=== PATIENT | male | born 1960 | race Caucasian/White ===

== ENCOUNTER → 2016-12-25 | Outpatient (CLI) | payer OTHER ==
--- NOTE | 2016-12-25 13:03 | NM ---
EXAMINATION TYPE: NM stress cardiolite complete DATE OF EXAM: 12/25/2016 10:21 AM COMPARISON: NONE HISTORY: 56-year-old male with chest pain TECHNIQUE: After the intravenous administration of 9.6 mCi Tc 99m Sestamibi - Rest images obtained 5 0 minutes post injection. The patient exercised using a ARTURO protocol and 1 minute prior to peak e xercise was injected with 25.6 mCi Tc 99m Sestamibi - Stress images obtained 7 minutes post injection . FINDINGS: Targeted heart rate was achieved during performance of the study. Review of stress and rest SPECT clarisa ges demonstrates no distinct perfusion abnormality. Gated analysis shows normal wall motion with an estimated left ventricular ejection fraction of 65 %. TID is calculated at 0.94, within normal limit s. Polar maps are normal. IMPRESSION: No scintigraphic evidence for reversible ischemia
--- NOTE | 2016-12-25 17:06 | ECHOS ---
DATE OF SERVICE: 12/25/2016 AGE: 56Y SEX: M HT: WT: lbs. Protocol Terrence: Others: Stage: Dur. of Exercise: 5:45 minutes *Heart Rate Blood Pressure *Rest: 87 Rest: 139/71 * *Max. Achieved: 150 Maximum BP: 203/77 85% PMHR: 139 100% PMHR: 163 *METS: 6.3 INDICATIONS: Chest pain. MEDICATIONS: See list. Patient was exercised for a total period of 6 minutes. A peak heart rate of 150 was achieved. Maximum blood pressure of 203/77 mm of mercury was noted. The patient did not complain of any chest pain during the test. Resting EKG shows normal sinus rhythm with normal OK interval and QRS duration and normal ST-T waves. No ST segment depression suggestive of ischemia is noted. The results of the nuclear study will follow. FINAL IMPRESSION: 1. This exercise EKG is not suggestive of ischemia. 2. Patient's exercise tolerance is below average. 3. Patient did not complain of any anginal pain during the test. 4. The results of the nuclear study will follow.
== END | disposition home or self-care (01) ==
LOC: RADNMMAIN 07:58
PROVIDERS: ATTEND Family Medicine
DX: R07.9 Chest pain, unspecified (principal)
CPT/HCPCS: 93017; 78452; A9500

== ENCOUNTER → 2018-04-03 | Outpatient (CLI) | payer OTHER ==
--- NOTE | 2018-04-03 15:09 | CTL ---
EXAMINATION TYPE: CT Low Dose Lung DATE OF EXAM ORDERED: 04/03/2018 HISTORY: Long-term tobacco use . Lung cancer screening CT DLP: 128.[address] CTDI: 3.60 mGy Automated exposure control for dose reduction was used. SCREENING VISIT: Initial study COMPARISON: Chest x-ray September 08, 2016 TECHNIQUE: Low dose computed tomography scan was performed through the chest at 1 mm thick sections and reconstructed images in the coronal plane at [address] DIAGNOSTIC QUALITY: Satisfactory FINDINGS: LUNG NODULES: Present, detailed below: Right lung a nodule with a size of 4 x 3 mm axial image 72. Right middle lobe a 5 x 3 mm nodule axial image 161 subpleural level. Right midlung hilar level a 6 x 3 mm nodule axial image 107 abutting the right mainstem bronchus at t he bifurcation. Left mid to lower lung anteriorly axial image 134 a 5 x 2 mm nodule. LUNGS: COPD: Severity: Mild Fibrosis: Severity: None Lymph nodes: No greater than 1 cm Other findings: No suspicious incidental findings BILATERAL PLEURAL SPACE: Effusion: None Calcification: None Thickening: None Pneumothorax: None HEART: Heart Size: Normal Coronary calcification: Moderate LAD and left circumflex Pericardial effusion: None OTHER FINDINGS: Upper abdomen: Liver is diffusely low dense relative to spleen consistent with mild fatty infiltratio n Bony thorax: Mild to moderate multilevel anterior and lateral spurring most prominent in the lower th oracic spine. Supraclavicular region: None Other: Ascending aorta measures up to 3.6 cm in diameter. Tiny degree of bilateral gynecomastia is fe lt present. IMPRESSION: Scattered small nodules as detailed above FOLLOW UP CT CHEST RECOMMENDATION: Six-month follow-up low-dose lung screening CT. CT LUNG RAD: Lung-Rad 3 Probably Benign
== END | disposition home or self-care (01) ==
LOC: RADCTMAIN 13:17
PROVIDERS: ATTEND Family Medicine
DX: R91.8 Other nonspecific abnormal finding of lung field (principal); Z87.891 Personal history of nicotine dependence

== ENCOUNTER → 2018-10-04 | Outpatient (CLI) | payer OTHER ==
--- NOTE | 2018-10-04 13:53 | CTL ---
EXAMINATION TYPE: CT Low Dose Lung DATE OF EXAM ORDERED: 10/04/2018 COMPARISON: 04/03/2018 HISTORY: . Low Dose CT Lung Screening CT DLP: [address] CTDI: 2.5 mGy IV CONTRAST USED: None. SCREENING VISIT: First visit COMPARISON: None. TECHNIQUE: Low dose computed tomography scan was performed through the chest at 1 millimeter thick se ctions and reconstructed images in the coronal plane at [address] DIAGNOSTIC QUALITY: Satisfactory FINDINGS: LUNG NODULES: Right lung a nodule with a size of 4 x 3 mm axial image 64. Right middle lobe a 5 x 3 mm nodule axial image 146 subpleural level. Right midlung hilar level a 6 x 3 mm nodule axial image 95 abutting the right mainstem bronchus at the bifurcation. Left mid to lower lung anteriorly axial image 134 a 6 x 2 mm nodule. No new nodules identified. LUNGS: COPD: Severity: Mild Fibrosis: Severity:None Lymph nodes: None Other findings: None RIGHT PLEURAL SPACE: Effusion: None Calcification: None Thickening: None Pneumothorax: None LEFT PLEURAL SPACE: Effusion: None Calcification: None Thickening: None Pneumothorax: None HEART: Heart Size: Mildly enlarged Coronary calcification: Moderate Pericardial effusion: None OTHER FINDINGS: Upper abdomen: Fatty liver. Bony thorax: Degenerative changes Supraclavicular region: No significant abnormalityOther: No significant abnormalityI IMPRESSION: Stable scattered small nodules as noted. FOLLOW UP CT CHEST RECOMMENDATION: Six-month follow-up low-dose lung screening CT. LUNG RAD CATEGORY Lung-Rad 3 Probably Benign
== END | disposition home or self-care (01) ==
LOC: RADCTMAIN 12:57
PROVIDERS: ATTEND Family Medicine
DX: Z12.2 Encounter for screening for malignant neoplasm of respiratory organs (principal); R91.8 Other nonspecific abnormal finding of lung field; Z87.891 Personal history of nicotine dependence

== ENCOUNTER 2019-05-13 16:06 | Emergency (ER) | payer OTHER ==
[2019-05-13] MEDS ORDERED: MECLIZINE 12.5 MG TAB PO STA (18:14)
[2019-05-13] MEDS ORDERED: METOCLOPRAMIDE 5 MG/ML 2 ML VIAL IVP STA (18:14)
[2019-05-13] MEDS ORDERED: diphenhydrAMINE 50 MG/ML 1 ML VIAL IVP STA (18:14)
[2019-05-13] MEDS ORDERED: methylPREDNISolone SOD SUCCI 125 MG/2 ML VIAL IV STA (18:14)
[2019-05-13] MEDS ORDERED: SODIUM CHLORIDE 0.9% 1,000 ML IV ONE (18:15)
--- NOTE | 2019-05-13 18:19 | ED ---
Dizziness HPI - General Chief Complaint: Dizziness Stated Complaint: vertigo, scratchy throat Time Seen by Provider: 05/13/19 18:01 Source: patient, RN notes reviewed, old records reviewed Mode of arrival: wheelchair Limitations: no limitations - History of Present Illness Initial Comments: This Patient is a 59-year-old male who presents by department today for evaluation with chief complaint of vertigo like dizziness for the past 3 days. Patient reports he went to [facility]. That time he was placed on gentamicin drops and oral meclizine. He's been taking his medication as prescribed and states that he is to continue to have left ear pain and continued until dizzy. Patient states that he has had a scratchy throat, low-grade temperatures. He denies any neck pain, headache or shortness of breath or chest pain. Patient states that he had a history of ear tubes and he was younger. Patient states that he's had no significant falls related to his dizziness calls to falling.Patient denies any recent fever, chills, shortness of breath, chest pain, back pain, abdominal pain, nausea vomiting, numbness or tingling, dysuria or hematuria, constipation or diarrhea, headaches or visual changes, or any other current symptoms - Related Data Home Medications Medication Instructions Recorded Confirmed Cyclobenzaprine [Flexeril] 10 mg PO TID PRN 04/25/14 05/13/19 Ergocalciferol [Vitamin D2 50,000 unit PO WE 04/25/14 05/13/19 (DRISDOL)] Fenofibrate 160 mg PO DAILY 04/25/14 05/13/19 Loratadine [Claritin] 10 mg PO DAILY 04/25/14 05/13/19 Nefazodone HCl 200 mg PO BID 04/25/14 05/13/19 ALPRAZolam [Xanax] 1 mg PO QID 07/03/16 05/13/19 HYDROcodone/APAP 10-325MG [[place] 1 tab PO QID 07/03/16 05/13/19 10-325] Polyethylene Glycol 3350 [Miralax] 17 gm PO DAILY PRN 07/03/16 05/13/19 Beclomethasone Dipropionate [Qvar 1 puff INHALATION RT-BID PRN 07/28/18 05/13/19 80 mcg] Gentamicin 0.3% Ophth Soln 1 drops RIGHT EYE QID 05/13/19 05/13/19 [Garamycin 0.3% Ophth Soln] Previous Rx's Medication Instructions Recorded Aspirin 81 mg PO DAILY #30 chewable 07/29/18 Azithromycin 250 mg PO DAILY #6 tablet 05/13/19 Meclizine [Antivert] 25 mg PO TID #12 tab 05/13/19 methylPREDNISolone Dose Pack 4 mg PO DIRECTED #21 package 05/13/19 [Medrol Dose Pack] Allergies Allergy/AdvReac Type Severity Reaction Status Date / Time Penicillins Allergy Unknown Verified 05/13/19 18:51 varenicline [From Chantix] AdvReac Hallucinati Verified 05/13/19 18:51 ons Review of Systems ROS Statement: Those systems with pertinent positive or pertinent negative responses have been documented in the HPI. ROS Other: All systems not noted in ROS Statement are negative. Past Medical History Past Medical History: Hypertension Additional Past Medical History / Comment(s): Hypercholestremia, Back pain, Seasonal Allergies, anxiety and depression, chronic pain History of Any Multi-Drug Resistant Organisms: None Reported Past Surgical History: Ear Surgery Additional Past Surgical History / Comment(s): ear tubes Past Psychological History: Anxiety, Depression Smoking Status: Current every day smoker Past Alcohol Use History: None Reported Past Drug Use History: None Reported General Exam - General Exam Comments Initial Comments: This patient's a 59-year-old male. Alert and oriented 3. No significant distress. Limitations: no limitations Head exam: Present: atraumatic, normocephalic, normal inspection Eye exam: Present: normal appearance, PERRL, EOMI. Absent: scleral icterus, conjunctival injection, periorbital swelling ENT exam: Present: normal exam, other (Patient has erythematous left TM with evidence of effusion. Air-fluid levels noted. No tenderness of her mastoid. No meningeal signs.) Neck exam: Present: normal inspection. Absent: tenderness, meningismus, lymphadenopathy Respiratory exam: Present: normal lung sounds bilaterally. Absent: respiratory distress, wheezes, rales, rhonchi, stridor Cardiovascular Exam: Present: regular rate, normal rhythm, normal heart sounds. Absent: systolic murmur, diastolic murmur, rubs, gallop, clicks GI/Abdominal exam: Present: soft, normal bowel sounds. Absent: distended, tenderness, guarding, rebound, rigid Extremities exam: Present: normal inspection, full ROM, normal capillary refill. Absent: tenderness, pedal edema, joint swelling, calf tenderness Back exam: Present: normal inspection Neurological exam: Present: alert, oriented X3, CN II-XII intact Psychiatric exam: Present: normal affect, normal mood Skin exam: Present: warm, dry, intact, normal color. Absent: rash Course Vital Signs 05/13/19 16:30 Temperature 99.0 F Pulse Rate 105 H Respiratory 16 Rate Blood Pressure 147/92 O2 Sat by Pulse 97 Oximetry Medical Decision Making - Medical Decision Making This is a 5-year-old male presents today for evaluation for vertigo and left earache. Has been having symptoms since Sunday when he woke up. He is complaining of left ear pain. Was started on gentamicin drops and oral meclizine with no relief. This time he is evidence of significant effusion over his left TM. Patient will be given IV fluids, Reglan Benadryl and Solu-Medrol and Rocephin for concern for an ear infection. Patient was reevaluated this time states that since he is feeling much better states that he feels like to go home. Patient is advised to put him on oral antibiotics and steroid pack for concern for ear infection and associated vertigo. Patient states is like his vertigo in the past and is agreeable. Again he denies any headache chest pain or other symptoms. Patient will be discharged with close follow-up with PCP. Disposition Clinical Impression: Left middle ear infection, Vertigo Disposition: HOME SELF-CARE Condition: Good Instructions (If sedation given, give patient instructions): Dizziness (ED), Vertigo (ED) Additional Instructions: Patient advised to follow-up with her primary care physician. Recommended taking the medication as prescribed. Return to ED for any worsening symptoms. Patient should take the Antivert as prescribed and add the steroids and antibiotics as discussed. Prescriptions: Meclizine [Antivert] 25 mg PO TID #12 tab Azithromycin 250 mg PO DAILY #6 tablet methylPREDNISolone Dose Pack [Medrol Dose Pack] 4 mg PO DIRECTED #21 package Is patient prescribed a controlled substance at d/c from ED?: No Referrals: Papi Hazel III, MD [Primary Care Provider] - 1-2 days Time of Disposition: 19:34
[2019-05-13 20:13] VITALS: BP 143/90; PULSE 90; RESP 18; TEMP 98.9
== END 2019-05-13 20:13 | disposition home or self-care (01) ==
LOC: EC 16:06
DX: H66.92 Otitis media, unspecified, left ear (principal); R42 Dizziness and giddiness; E78.00 Pure hypercholesterolemia, unspecified; F41.9 Anxiety disorder, unspecified; F32.9 Major depressive disorder, single episode, unspecified; F17.200 Nicotine dependence, unspecified, uncomplicated; Z79.899 Other long term (current) drug therapy; Z88.0 Allergy status to penicillin; Z88.8 Allergy status to other drugs, medicaments and biological substances
CPT/HCPCS: 99284; 96374; 96375 ×2; 96361 ×2; J1200; J2765; J2930

== ENCOUNTER 2020-07-18 17:17 | Emergency (ER) | payer OTHER ==
[2020-07-18 17:30] VITALS: RESP 18; TEMP 98
--- NOTE | 2020-07-18 17:58 | ED ---
General Adult HPI - General Chief complaint: Recheck/Abnormal Lab/Rx Stated complaint: medication reaction Time Seen by Provider: 07/18/20 17:22 Source: patient Mode of arrival: ambulatory Limitations: no limitations - History of Present Illness Initial comments: Dictation was produced using [employer] dictation software. please excuse any grammatical, word or spelling errors. This patient was cared for during a federal and state declared state of emergency secondary to Covid 19 Chief Complaint: 60-year-old female presents with insomnia and anxiety History of Present Illness: Patient is a 60-year-old male. Patient states for the last week and a half he's been having symptoms of anxiety, tremors, loss of appetite or blurred vision. Patient states that at the time of the onset of symptoms he was starting a new antidepressant medication. Patient states that he used to be on Nefazodone. He is told that this medication was discontinued and he was started on a different antidepressant called Fetzima. He is given a pamphlet on the side effects of this medication. Feels like he is suffering from all of it. Patient denies any suicidal ideation, homicidal ideation, visual or auditory hallucinations. Feels anxious now. The ROS documented in this emergency department record has been reviewed and confirmed by me. Those systems with pertinent positive or negative responses have been documented in the HPI. All other systems are other negative and/or noncontributory. PHYSICAL EXAM: General Impression: Alert and oriented x3, not in acute distress HEENT: Normocephalic atraumatic, extra-ocular movements intact, pupils equal and reactive to light bilaterally, mucous membranes moist. Cardiovascular: Heart regular rate and rhythm Chest: Able to complete full sentences, no retractions, no tachypnea Abdomen: abdomen soft, non-tender, non-distended, no organomegaly Musculoskeletal: Pulses present and equal in all extremities, no peripheral edema Motor: no focal deficits noted Neurological: CN II-XII grossly intact, no focal motor or sensory deficits noted Skin: Intact with no visualized rashes Psych: Normal affect and mood ED course: 60-year-old male presents with possible side effects from new antidepressant medications. Signs upon arrival shows findings within acceptable limits. Patient is well-appearing at bedside. He does not appear anxious. Laboratory evaluation obtained showing no acute processes. Patient medically cleared for EPS evaluation. EPS evaluation recommended discharge and advised to discontinue the medication to follow-up with his PCP for different regimen. Patient agreeable with plan. Patient be discharged. - Related Data Home Medications Medication Instructions Recorded Confirmed Cyclobenzaprine [Flexeril] 10 mg PO TID PRN 04/25/14 05/13/19 Ergocalciferol [Vitamin D2 50,000 unit PO WE 04/25/14 05/13/19 (DRISDOL)] Fenofibrate 160 mg PO DAILY 04/25/14 05/13/19 Loratadine [Claritin] 10 mg PO DAILY 04/25/14 05/13/19 Nefazodone HCl 200 mg PO BID 04/25/14 05/13/19 ALPRAZolam [Xanax] 1 mg PO QID 07/03/16 05/13/19 HYDROcodone/APAP 10-325MG [[place] 1 tab PO QID 07/03/16 05/13/19 10-325] Polyethylene Glycol 3350 [Miralax] 17 gm PO DAILY PRN 07/03/16 05/13/19 Beclomethasone Dipropionate [Qvar 1 puff INHALATION RT-BID PRN 07/28/18 05/13/19 80 mcg] Gentamicin 0.3% Ophth Soln 1 drops RIGHT EYE QID 05/13/19 05/13/19 [Garamycin 0.3% Ophth Soln] Previous Rx's Medication Instructions Recorded Aspirin 81 mg PO DAILY #30 chewable 07/29/18 Azithromycin 250 mg PO DAILY #6 tablet 05/13/19 Meclizine [Antivert] 25 mg PO TID #12 tab 05/13/19 methylPREDNISolone Dose Pack 4 mg PO DIRECTED #21 package 05/13/19 [Medrol Dose Pack] Allergies Allergy/AdvReac Type Severity Reaction Status Date / Time Penicillins Allergy Unknown Verified 07/18/20 17:30 varenicline [From Chantix] AdvReac Hallucinati Verified 07/18/20 17:30 ons Review of Systems ROS Statement: Those systems with pertinent positive or pertinent negative responses have been documented in the HPI. ROS Other: All systems not noted in ROS Statement are negative. Past Medical History Past Medical History: Hypertension Additional Past Medical History / Comment(s): Hypercholestremia, Back pain, Seasonal Allergies, anxiety and depression, chronic pain History of Any Multi-Drug Resistant Organisms: None Reported Past Surgical History: Ear Surgery Additional Past Surgical History / Comment(s): ear tubes Past Psychological History: Anxiety, Depression Past Alcohol Use History: None Reported Past Drug Use History: None Reported General Exam Limitations: no limitations Course Vital Signs 07/18/20 17:23 Temperature 98 F Pulse Rate 100 Respiratory 18 Rate Blood Pressure 156/89 O2 Sat by Pulse 100 Oximetry Medical Decision Making - Lab Data Result diagrams: 07/18/20 18:13 07/18/20 18:13 Lab Results 07/18/20 07/18/20 Range/Units 18:13 18:13 WBC 10.9 H (3.8-10.6) k/uL RBC 5.80 (4.30-5.90) m/uL Hgb 17.0 (13.0-17.5) gm/dL Hct 52.9 (39.0-53.0) % MCV 91.2 (80.0-100.0) fL MCH 29.4 (25.0-35.0) pg MCHC 32.2 (31.0-37.0) g/dL RDW 13.2 (11.5-15.5) % Plt Count 223 (150-450) k/uL Neutrophils % 74 % Lymphocytes % 17 % Monocytes % 5 % Eosinophils % 1 % Basophils % 1 % Neutrophils # 8.1 H (1.3-7.7) k/uL Lymphocytes # 1.9 (1.0-4.8) k/uL Monocytes # 0.5 (0-1.0) k/uL Eosinophils # 0.1 (0-0.7) k/uL Basophils # 0.1 (0-0.2) k/uL Sodium 137 (137-145) mmol/L Potassium 5.2 H (3.5-5.1) mmol/L Chloride 105 (98-107) mmol/L Carbon Dioxide 23 (22-30) mmol/L Anion Gap 9 mmol/L BUN 13 (9-20) mg/dL Creatinine 0.87 (0.66-1.25) mg/dL Est GFR (CKD-EPI)AfAm >90 (>60 ml/min/1.73 sqM) Est GFR (CKD-EPI)NonAf >90 (>60 ml/min/1.73 sqM) Glucose 119 H (74-99) mg/dL Calcium 10.0 (8.4-10.2) mg/dL Magnesium 1.8 (1.6-2.3) mg/dL Disposition Clinical Impression: Drug side effects Disposition: HOME SELF-CARE Condition: Good Instructions (If sedation given, give patient instructions): Tremors (ED) Is patient prescribed a controlled substance at d/c from ED?: No Referrals: Papi Hazel III, MD [Primary Care Provider] - 1-2 days Time of Disposition: 20:23
[2020-07-18 18:19] LABS: Basophils # (A) 0.1 k/uL (0-0.2); Basophils % (A) 1 %; Eosinophils # (A) 0.1 k/uL (0-0.7); Eosinophils % (A) 1 %; HCT 52.9 % (39.0-53.0); Lymphocytes # (A) 1.9 k/uL (1.0-4.8); Lymphocytes % (A) 17 %; MCH 29.4 pg (25.0-35.0); MCHC 32.2 g/dL (31.0-37.0); MCV 91.2 fL (80.0-100.0); Mean Platelet Volume 10.2; Monocytes # (A) 0.5 k/uL (0-1.0); Monocytes % (A) 5 %; Neutrophils # (A) 8.1 k/uL (1.3-7.7); Neutrophils % (A) 74 %; Platelet Count 223 k/uL (150-450); RDW 13.2 % (11.5-15.5); WBC 10.9 k/uL (3.8-10.6)
[2020-07-18 18:30] LABS: African American GFR (CKD) >90 (>60 ml/min/1.73 sqM); Anion Gap 9 mmol/L; Blood Urea Nitrogen 13 mg/dL (9-20); Carbon Dioxide 23 mmol/L (22-30); Chloride 105 mmol/L (98-107); Glucose 119 mg/dL (74-99); Magnesium 1.8 mg/dL (1.6-2.3); Non-African American GFR(CKD) >90 (>60 ml/min/1.73 sqM); Sodium 137 mmol/L (137-145)
[2020-07-18 18:44] LABS: Potassium 5.2 mmol/L (3.5-5.1)
[2020-07-18 20:34] VITALS: BP 148/91; PULSE 95
== END 2020-07-18 20:34 | disposition home or self-care (01) ==
LOC: EC 17:17
DX: R25.1 Tremor, unspecified (principal); F41.9 Anxiety disorder, unspecified; T50.995A Adverse effect of other drugs, medicaments and biological substances, initial encounter; F32.9 Major depressive disorder, single episode, unspecified; E78.00 Pure hypercholesterolemia, unspecified; G89.29 Other chronic pain; M54.9 Dorsalgia, unspecified; I10 Essential (primary) hypertension; Z88.0 Allergy status to penicillin; Z88.8 Allergy status to other drugs, medicaments and biological substances; Z79.899 Other long term (current) drug therapy; Z79.891 Long term (current) use of opiate analgesic
CPT/HCPCS: 36415; 80048; 83735; 85025; 99284

== ENCOUNTER → 2022-01-21 | Outpatient (CLI) | payer OTHER ==
--- NOTE | 2022-01-21 19:07 | MR ---
EXAMINATION TYPE: MR brain and iac wo/w con DATE OF EXAM: 01/21/2022 COMPARISON: 07/29/2018 HISTORY: Migraine, tinnitus, bilateral CONTRAST: Standard multiplanar, multisequence MRI departmental protocol images were obtained without contrast a nd with 8 mL intravenous Gadavist gadolinium contrast. There is minimal cerebral atrophy. Diffusion images show no sign of an acute infarct. Ventricles have normal size. No mass effect or midline shift. No sign of intracranial hemorrhage. Corpus callosum is intact. FLAIR images show no significant white matter disease. There is 4 mm focus of increased sign al in the white matter left frontal lobe. The brainstem is intact. There is no evidence of posterior fossa mass. The internal auditory canals appear normal. The acoustical nerve and vestibular nerve appear normal. There is no evidence of cerebellopontine angle mass. No pathologic enhancement. There is normal enhan cement of the venous sinuses. IMPRESSION: Minimal atrophy. No acute intracranial abnormality. No focal posterior fossa abnormality. There is si nusitis without change.
== END | disposition home or self-care (01) ==
LOC: RADMRIMAIN 13:02
PROVIDERS: ATTEND Family Medicine
DX: J32.9 Chronic sinusitis, unspecified (principal); M62.50 Muscle wasting and atrophy, not elsewhere classified, unspecified site
CPT/HCPCS: 70553; A9585

== ENCOUNTER → 2022-09-25 | Outpatient (CLI) | payer OTHER ==
--- NOTE | 2022-09-25 15:19 | CTL ---
EXAMINATION TYPE: CT Low Dose Lung DATE OF EXAM: 09/25/2022 3:05 PM CLINICAL INDICATION:Male, 62 years old with history of Z87.891 personal history of tobacco use; perso nal history of tobacco use , history of tobacco use. COMPARISON: Subsequent exam most recent prior 10/04/2018 TECHNIQUE: Multiple axial non-contrast scans were obtained from approximately the lung apices through the upper abdomen. Coronal and sagittal reformatted images were obtained. Low dose technique was uti lized. CT DLP: 84.9 mGycm, Automated exposure control for dose reduction was used. CT Contrast: Contrast used: None Oral contrast used: None FINDINGS: ======== Lack of intravenous contrast and low dose technique limits the evaluation of the vascular and soft ti ssue structures. LUNGS: Mild emphysema changes are seen throughout the lungs. No focal consolidation, pneumothorax or pleural effusion. Left upper lung somewhat wedge-shaped area of increased interstitial prominence is not significantly changed. Nodules: RUL: Stable 5 mm nodule series 4 image 69. Stable 4 mm pulmonary nodule image 92 RML: Stable right middle lobe 3 mm pulmonary nodule image 134 RLL: None. YAS: None. LLL: None. AIRWAY: Patent and unremarkable. HEART: The heart is mildly enlarged for size. There is coronary artery atherosclerosis. MEDIASTINUM: No gross evidence of adenopathy. VASCULATURE: No aortic aneurysm. Atherosclerosis of the arterial vasculature. MUSCULOSKELETAL: No acute osseous abnormalities SOFT TISSUES/LYMPH NODES: Unremarkable. LOWER NECK: No significant findings. UPPER ABDOMEN: No significant findings. IMPRESSION: 1. Stable pulmonary nodules. 2. Mild emphysema changes. CT LUNG RAD AND CT CHEST RECOMMENDATION: Lung-Rad 2 Benign Appearance or Behavior: Continue annual sc reening with LDCT in 12 months. S Modifier (other clinically significant findings): None Recommend smoking cessation (if current smoker), or continuation of smoking cessation (if prior smoke r). Annual screening for lung cancer with low-dose computed tomography is recommended in adults ages 55 to 77 years who have a 30 pack-year smoking history and currently smoke or have quit within the pa st 15 years. Screening should be discontinued once a person has not smoked for 15 years or develops a health problem that substantially limits life expectancy or the ability or willingness to have [place] lung surgery. Lung rads 2021 [email or web address]
== END | disposition home or self-care (01) ==
LOC: RADCTMAIN 14:31
PROVIDERS: ATTEND Family Medicine
DX: Z12.2 Encounter for screening for malignant neoplasm of respiratory organs (principal); J43.9 Emphysema, unspecified; R91.8 Other nonspecific abnormal finding of lung field; Z87.891 Personal history of nicotine dependence
CPT/HCPCS: 71271

== ENCOUNTER 2022-12-19 10:59 | Day surgery (SDC) | payer OTHER ==
[2022-12-14 16:06] VITALS: BMI 36.1
[~2022-12-19 10:59] MED LIST: LACTATED RINGERS 1,000 ML IV SCH; LIDOCAINE 1% (10MG/ML) FOR IV START INTRADERMA PRN
[2022-12-19 11:59] VITALS: TEMP 97.5
--- NOTE | 2022-12-19 12:27 | P.PCN ---
Date of Procedure: 12/19/22 Procedure(s) Performed: BRIEF HISTORY: Patient is a 62-year-old pleasant male scheduled for an elective colonoscopy as a part of evaluation of prior history of colon polyps. Last coloscopy was 5 years ago. PROCEDURE PERFORMED: Colonoscopy with snare polypectomy. PREOPERATIVE DIAGNOSIS: History Of colon polyps. IV sedation per Anesthesia. PROCEDURE: After informed consent was obtained, the patient, was brought into the endoscopy unit. IV sedation was administered by Anesthesia under continuous monitoring. Digital rectal examination was normal. Initially the Olympus CF-160 flexible video colonoscope was then inserted in the rectum, gradually advanced into the cecum without any difficulty. Careful examination was performed as the scope was gradually being withdrawn. Ileocecal valve and the appendiceal orifice were visualized and appeared normal. Prep was excellent. Mucosa of the cecum, ascending colon, appeared normal. The transverse colon there was a 5 mm polyp that was removed by snare polypectomy. Rest of the transverse colon, descending colon, sigmoid colon, and rectum appeared normal. Retroflexion was performed in the rectum and grade 2 internal hemorrhoids were seen. The patient tolerated the procedure well. IMPRESSION: 5 mm transverse colon polyp status post polypectomy Grade 2 internal hemorrhoids RECOMMENDATIONS: Findings of this examination were discussed with the patient is well as his family. He was advised to follow with the biopsy results. Repeat colonoscopy in 5 years..
[2022-12-19] MEDS ORDERED: LIDOCAINE 2% INJ 20 MG/ML (2 ML VIAL) ONE (12:40)
[2022-12-19] MEDS ORDERED: PROPOFOL 10 MG/ML 20 ML VIAL IV ONE (12:40)
[2022-12-19 13:26] VITALS: BP 110/71; PULSE 85; RESP 18
== END 2022-12-19 13:48 | disposition home or self-care (01) ==
LOC: ORWHC2ENDO 10:59
PROVIDERS: ATTEND Internal Medicine Gastroenterology
DX: Z12.11 Encounter for screening for malignant neoplasm of colon (principal); K64.1 Second degree hemorrhoids; Z86.010 Personal history of colon polyps
CPT/HCPCS: 88305; 45385; J2704; J2001; 45380

== ENCOUNTER 2023-08-11 14:55 | Emergency (ER) | payer OTHER ==
[2023-08-11 16:15] VITALS: BP 143/78; PULSE 80; RESP 20; TEMP 98.6
[2023-08-11] MEDS ORDERED: ALPRAZolam 0.25 MG TAB PO STA (17:34)
--- NOTE | 2023-08-11 17:43 | ED ---
General Adult HPI - General Chief complaint: Anxiety Stated complaint: anxiety-withdrawls Time Seen by Provider: 08/11/23 17:23 Source: patient, RN notes reviewed, old records reviewed Mode of arrival: wheelchair Limitations: no limitations - History of Present Illness Initial comments: 63-year-old male who presents for evaluation of anxiety. Patient states he was on 1 mg Xanax 4 times daily for approximately 30 years. He was seen by new physician and was given a taper of Xanax over the past one month. He's uncertain of the exact details of this taper but no she's been out of medication for the past 4 days. He feels anxious and has some nausea. No seizure activity. He is requesting medication refill. - Related Data Home Medications Medication Instructions Recorded Confirmed Cyclobenzaprine [Flexeril] 10 mg PO TID PRN 04/25/14 12/19/22 Fenofibrate 160 mg PO DAILY 04/25/14 12/19/22 Loratadine [Claritin] 10 mg PO DAILY 04/25/14 12/19/22 ALPRAZolam [Xanax] 1 mg PO Q6HR PRN 07/03/16 12/19/22 HYDROcodone/APAP 10-325MG [[place] 1 tab PO Q6HR PRN 07/03/16 12/19/22 10-325] polyethylene glycoL 3350 [Miralax] 17 gm PO DAILY PRN 07/03/16 12/19/22 Beclomethasone Dipropionate [Qvar 1 puff INHALATION RT-BID 07/28/18 12/19/22 80 mcg] Aspirin 81 mg PO HS 12/14/22 12/19/22 Ergocalciferol [Vitamin D2 (1250 1,250 mcg PO WEEKLY 12/14/22 12/19/22 Mcg = 45976 Iu)] Fluticasone Propionate [Flovent 1 inhalation INHALATION DAILY 12/14/22 12/19/22 Diskus] Meclizine [Antivert] 25 mg PO TID PRN 12/14/22 12/19/22 Multivitamins, Thera [Multivitamin 1 tab PO DAILY 12/14/22 12/19/22 (formulary)] Nefazodone HCl 50 mg PO BID 12/14/22 12/19/22 Prazosin [Minipress] 1 mg PO HS 12/14/22 12/19/22 Rosuvastatin [Crestor] 20 mg PO DAILY 12/14/22 12/19/22 lisinopriL [Zestril] 10 mg PO DAILY 12/14/22 12/19/22 Previous Rx's Medication Instructions Recorded ALPRAZolam [Xanax] 0.25 mg PO TID PRN 3 Days #9 tab 08/11/23 Allergies Allergy/AdvReac Type Severity Reaction Status Date / Time Penicillins Allergy Unknown Verified 08/11/23 16:15 [email or web address] [From Chantix] AdvReac Hallucinati Verified 08/11/23 16:15 ons Review of Systems ROS Statement: Those systems with pertinent positive or pertinent negative responses have been documented in the HPI. ROS Other: All systems not noted in ROS Statement are negative. Past Medical History Past Medical History: Chest Pain / Angina, Hyperlipidemia, Hypertension Additional Past Medical History / Comment(s): DDD with Back pain, Seasonal Allergies, hemorrhoids, constipation, hx polyps, states ct of chest showed blockages and is scheduled for stress test., vertigo. History of Any Multi-Drug Resistant Organisms: None Reported Past Surgical History: Ear Surgery Additional Past Surgical History / Comment(s): ear tubes (2021), colonoscopy Past Anesthesia/Blood Transfusion Reactions: No Reported Reaction, Motion Sickness Past Psychological History: Anxiety, Depression Smoking Status: Current every day smoker Past Alcohol Use History: Rare Past Drug Use History: None Reported - Past Family History Father Family Medical History: Cancer Additional Family Medical History / Comment(s): cirrhosis Mother Family Medical History: Cancer Additional Family Medical History / Comment(s): cirrhosis General Exam Limitations: no limitations General appearance: alert, in no apparent distress Head exam: Present: atraumatic, normocephalic Eye exam: Present: normal appearance, PERRL Neck exam: Present: normal inspection. Absent: tenderness, meningismus Respiratory exam: Present: normal lung sounds bilaterally. Absent: respiratory distress Cardiovascular Exam: Present: regular rate, normal rhythm GI/Abdominal exam: Present: soft. Absent: distended, tenderness Extremities exam: Present: normal inspection, normal capillary refill Neurological exam: Present: alert, oriented X3, CN II-XII intact. Absent: motor sensory deficit Psychiatric exam: Present: anxious Skin exam: Present: warm, dry, intact. Absent: cyanosis, diaphoretic Course Vital Signs 11/25/23 16:10 Temperature 98.6 F Pulse Rate 80 Respiratory 20 Rate Blood Pressure 143/78 O2 Sat by Pulse 99 Oximetry Medical Decision Making - Medical Decision Making Was pt. sent in by a medical professional or institution (WARD Oconnor, RESPITE WORKER, urgent care, hospital, or alf...) When possible be specific @ -No Did you speak to anyone other than the patient for history (EMS, parent, family, police, friend...)? What history was obtained from this source @ -No Did you review nursing and triage notes (agree or disagree)? Why? @ -I reviewed and agree with nursing and triage notes Were old charts reviewed (outside hosp., previous admission, EMS record, old EKG, old radiological studies, urgent care reports/EKG's, alf records)? Report findings @ -No old charts were reviewed Differential Diagnosis (chest pain, altered mental status, abdominal pain women, abdominal pain men, vaginal bleeding, weakness, fever, dyspnea, syncope, headache, dizziness, GI bleed, back pain, seizure, CVA, palpatations, mental health, musculoskeletal)? @ -Medication withdrawal, anxiety EKG interpreted by me (3pts min.). @ -As above X-rays interpreted by me (1pt min.). @ -None done CT interpreted by me (1pt min.). @ -None done U/S interpreted by me (1pt. min.). @ -None done What testing was considered but not performed or refused? (CT, X-rays, U/S, labs)? Why? @ -None What meds were considered but not given or refused? Why? @ -None Did you discuss the management of the patient with other professionals (professionals i.e. WARD Oconnor, RESPITE WORKER, lab, RT, psych nurse, social services specialist, surveyor chain helper, teacher, special forces warrant officer, director of casework department)? Give summary @ -No Was smoking cessation discussed for >3mins.? @ -No Was critical care preformed (if so, how long)? @ -No Were there social determinants of health that impacted care today? How? (Homelessness, low income, unemployed, alcoholism, drug addiction, transportation, low edu. Level, literacy, decrease access to med. care, intermediate, rehab)? @ -No Was there de-escalation of care discussed even if they declined (Discuss DNR or withdrawal of care, Hospice)? DNR status @ -No What co-morbidities impacted this encounter? (DM, HTN, Smoking, COPD, CAD, Cancer, CVA, ARF, Chemo, Hep., AIDS, mental health diagnosis, sleep apnea, morbid obesity)? @ -[Anxiety disorder Was patient admitted / discharged? Hospital course, mention meds given and route, prescriptions, significant lab abnormalities, going to OR and other pertinent info. @ -[Patient is mildly anxious, not tachycardic. He did receive a benzodiazepine taper. He is given low-dose Xanax for the next 3 days which she will attempt to taper as long as he can and he should call his primary care provider Sunday. Undiagnosed new problem with uncertain prognosis? @ -No Drug Therapy requiring intensive monitoring for toxicity (Heparin, Nitro, Insulin, Cardizem)? @ -No Were any procedures done? @ -No Diagnosis/symptom? @ -Anxiety Acute, or Chronic, or Acute on Chronic? @Acute Uncomplicated (without systemic symptoms) or Complicated (systemic symptoms)? @ -default Side effects of treatment? @ -No Exacerbation, Progression, or Severe Exacerbation? @ -No Poses a threat to life or bodily function? How? (Chest pain, [place], [place], pneumonia, PE, COPD, DKA, ARF, appy, cholecystitis, CVA, Diverticulitis, Homicidal, Suicidal, threat to staff... and all critical care pts) @ -Low risk at this time Disposition Clinical Impression: Acute anxiety Disposition: HOME SELF-CARE Condition: Fair Instructions (If sedation given, give patient instructions): Generalized Anxiety Disorder (ED) Prescriptions: ALPRAZolam [Xanax] 0.25 mg PO TID PRN 3 Days #9 tab PRN Reason: Anxiety Is patient prescribed a controlled substance at d/c from ED?: No Referrals: Donna Banda [Primary Care Provider] - 1-2 days Time of Disposition: 17:43
== END 2023-08-11 17:41 | disposition home or self-care (01) ==
LOC: EC 14:55
DX: F41.9 Anxiety disorder, unspecified (principal); I10 Essential (primary) hypertension; E78.5 Hyperlipidemia, unspecified; F32.A Depression, unspecified; F17.200 Nicotine dependence, unspecified, uncomplicated; Z88.8 Allergy status to other drugs, medicaments and biological substances; Z88.0 Allergy status to penicillin; Z79.82 Long term (current) use of aspirin; Z79.51 Long term (current) use of inhaled steroids; Z79.899 Other long term (current) drug therapy
CPT/HCPCS: 99283

== ENCOUNTER 2023-08-13 00:55 | Emergency (ER) | payer OTHER ==
--- NOTE | 2023-08-13 03:34 | ED ---
General Adult HPI - General Source: patient Mode of arrival: ambulatory Limitations: no limitations <Jose Eduardo Singleton - Last Filed: 08/13/23 03:35> - General Source: patient, RN notes reviewed Mode of arrival: ambulatory Limitations: no limitations <Gordon Arteaga - Last Filed: 08/13/23 13:20> - General Chief complaint: Psychiatric Symptoms Stated complaint: Mental Health Evaluation Time Seen by Provider: 08/13/23 03:33 - History of Present Illness Initial comments: 63-year-old male presents to the ED with chief complaint of mental health evaluation. Patient states that he would like to have mental health evaluation. Per friend, states that he threatened to harm the friend's . (Jose Eduardo Singleton) 63-year-old male presents emergency Department with chief complaint of needing psychiatric evaluation. Patient states he went to his friend's house in which he told his friend that he wanted to murder him but is not sure why he wants to do this. Patient states that he wants to harm people she's having these thoughts but states he wants to harm himself. Patient states is not exactly sure why he is having thoughts he does admit to seen here 2 days ago for benzodiazepine issues. Patient reportedly was given Taper dose of Xanax. (Gordon Arteaga) - Related Data Home Medications Medication Instructions Recorded Confirmed Cyclobenzaprine [Flexeril] 10 mg PO TID PRN 04/25/14 12/19/22 Fenofibrate 160 mg PO DAILY 04/25/14 12/19/22 Loratadine [Claritin] 10 mg PO DAILY 04/25/14 12/19/22 ALPRAZolam [Xanax] 1 mg PO Q6HR PRN 07/03/16 12/19/22 HYDROcodone/APAP 10-325MG [[place] 1 tab PO Q6HR PRN 07/03/16 12/19/22 10-325] polyethylene glycoL 3350 [Miralax] 17 gm PO DAILY PRN 07/03/16 12/19/22 Beclomethasone Dipropionate [Qvar 1 puff INHALATION RT-BID 07/28/18 12/19/22 80 mcg] Aspirin 81 mg PO HS 12/14/22 12/19/22 Ergocalciferol [Vitamin D2 (1250 1,250 mcg PO WEEKLY 12/14/22 12/19/22 Mcg = 87787 Iu)] Fluticasone Propionate [Flovent 1 inhalation INHALATION DAILY 12/14/22 12/19/22 Diskus] Meclizine [Antivert] 25 mg PO TID PRN 12/14/22 12/19/22 Multivitamins, Thera [Multivitamin 1 tab PO DAILY 12/14/22 12/19/22 (formulary)] Nefazodone HCl 50 mg PO BID 12/14/22 12/19/22 Prazosin [Minipress] 1 mg PO HS 12/14/22 12/19/22 Rosuvastatin [Crestor] 20 mg PO DAILY 12/14/22 12/19/22 lisinopriL [Zestril] 10 mg PO DAILY 12/14/22 12/19/22 Previous Rx's Medication Instructions Recorded ALPRAZolam [Xanax] 0.25 mg PO TID PRN 3 Days #9 tab 08/11/23 Allergies Allergy/AdvReac Type Severity Reaction Status Date / Time Penicillins Allergy Unknown Verified 08/13/23 11:52 [email or web address] [From Chantix] AdvReac Hallucinati Verified 08/13/23 11:52 ons Review of Systems ROS Other: All systems not noted in ROS Statement are negative. <Jose Eduardo Singleton - Last Filed: 08/13/23 03:35> ROS Other: All systems not noted in ROS Statement are negative. <Gordon Arteaga - Last Filed: 08/13/23 13:20> ROS Statement: Those systems with pertinent positive or pertinent negative responses have been documented in the HPI. Past Medical History Past Medical History: Chest Pain / Angina, Hyperlipidemia, Hypertension Additional Past Medical History / Comment(s): DDD with Back pain, Seasonal Allergies, hemorrhoids, constipation, hx polyps, states ct of chest showed blockages and is scheduled for stress test., vertigo. History of Any Multi-Drug Resistant Organisms: None Reported Past Surgical History: Ear Surgery Additional Past Surgical History / Comment(s): ear tubes (2021), colonoscopy Past Anesthesia/Blood Transfusion Reactions: No Reported Reaction, Motion Sickness Past Psychological History: Anxiety, Depression Smoking Status: Current every day smoker Past Alcohol Use History: Rare Past Drug Use History: None Reported - Past Family History Father Family Medical History: Cancer Additional Family Medical History / Comment(s): cirrhosis Mother Family Medical History: Cancer Additional Family Medical History / Comment(s): cirrhosis <Jose Eduardo Singleton - Last Filed: 08/13/23 03:35> General Exam Limitations: no limitations General appearance: alert Neck exam: Present: normal inspection Extremities exam: Present: normal inspection Back exam: Present: normal inspection Neurological exam: Present: alert <Jose Eduardo Singleton - Last Filed: 08/13/23 03:35> General appearance: alert, in no apparent distress Head exam: Present: atraumatic, normocephalic, normal inspection Eye exam: Present: normal appearance, PERRL, EOMI. Absent: scleral icterus, conjunctival injection, periorbital swelling ENT exam: Present: normal exam, mucous membranes moist Neck exam: Present: normal inspection, full ROM. Absent: tenderness, meningismus, lymphadenopathy Respiratory exam: Present: normal lung sounds bilaterally. Absent: respiratory distress, wheezes, rales, rhonchi, stridor Cardiovascular Exam: Present: regular rate, normal rhythm, normal heart sounds. Absent: systolic murmur, diastolic murmur, rubs, gallop, clicks Extremities exam: Present: normal inspection Back exam: Present: normal inspection Neurological exam: Present: alert, oriented X3 Psychiatric exam: Present: agitated <Gordon Arteaga - Last Filed: 08/13/23 13:20> Course Vital Signs 08/13/23 08/13/23 01:21 05:29 Temperature 98.3 F 98 F Pulse Rate 103 H 84 Respiratory 18 18 Rate Blood Pressure 144/82 143/74 O2 Sat by Pulse 98 98 Oximetry Medical Decision Making <Jose Eduardo Singleton - Last Filed: 08/13/23 03:35> <Gordon Arteaga - Last Filed: 08/13/23 13:20> - Medical Decision Making Quicknote portion performed. Signed Jose Eduardo Singleton PA-C (Jose Eduardo Singleton) Was pt. sent in by a medical professional or institution ([facility] Oconnor, WEB MACHINE TENDER, urgent care, hospital, or long term...) When possible be specific @ -No Did you speak to anyone other than the patient for history (EMS, parent, family, police, friend...)? What history was obtained from this source @ -No Did you review nursing and triage notes (agree or disagree)? Why? @ -I reviewed and agree with nursing and triage notes Were old charts reviewed (outside hosp., previous admission, EMS record, old EKG, old radiological studies, urgent care reports/EKG's, long term records)? Report findings @ -Reviewed prior ER visit Differential Diagnosis (chest pain, altered mental status, abdominal pain women, abdominal pain men, vaginal bleeding, weakness, fever, dyspnea, syncope, headache, dizziness, GI bleed, back pain, seizure, CVA, palpatations, mental health, musculoskeletal)? @ -Differential Mental Health Depression, anxiety, bipolar, psychosis, schizophrenia, borderline personality, situational depression, adjustment disorder, behavioral disorder, brain tumor, malingering, substance abuse, encephalopathy, medication reaction, dementia, hypothyroidism, degenerative neurologic disorder, lupus.... This is not meant to be all-inclusive listable EKG interpreted by me (3pts min.). @ -None X-rays interpreted by me (1pt min.). @ -None done CT interpreted by me (1pt min.). @ -None done U/S interpreted by me (1pt. min.). @ -None done What testing was considered but not performed or refused? (CT, X-rays, U/S, labs)? Why? @ -None What meds were considered but not given or refused? Why? @ -None Did you discuss the management of the patient with other professionals (professionals i.e. , PA, WEB MACHINE TENDER, lab, RT, psych nurse, social work faculty member, salesperson surgical appliances, teacher, project control officer, case therapist)? Give summary @ -EPS evaluated the patient and recommended patient to be admitted for psychiatric treatment Was smoking cessation discussed for >3mins.? @ -No Was critical care preformed (if so, how long)? @ -No Were there social determinants of health that impacted care today? How? (Homelessness, low income, unemployed, alcoholism, drug addiction, transportation, low edu. Level, literacy, decrease access to med. care, halfway, rehab)? @ -No Was there de-escalation of care discussed even if they declined (Discuss DNR or withdrawal of care, Hospice)? DNR status @ -No What co-morbidities impacted this encounter? (DM, HTN, Smoking, COPD, CAD, Cancer, CVA, ARF, Chemo, Hep., AIDS, mental health diagnosis, sleep apnea, morbid obesity)? @ -None Was patient admitted / discharged? Hospital course, mention meds given and route, prescriptions, significant lab abnormalities, going to OR and other pertinent info. @ -Patient is admitted psychiatric floor for further treatment and management secondary to suicidal ideation and homicidal ideation Undiagnosed new problem with uncertain prognosis? @ -No Drug Therapy requiring intensive monitoring for toxicity (Heparin, Nitro, Insulin, Cardizem)? @ -No Were any procedures done? @ -No Diagnosis/symptom? @ -Anxiety, depression, suicidal ideation Acute, or Chronic, or Acute on Chronic? @ -Acute Uncomplicated (without systemic symptoms) or Complicated (systemic symptoms)? @ - complicated Side effects of treatment? @ -No Exacerbation, Progression, or Severe Exacerbation? @ -No Poses a threat to life or bodily function? How? (Chest pain, [place], [place], pneumonia, PE, COPD, DKA, ARF, appy, cholecystitis, CVA, Diverticulitis, Homicidal, Suicidal, threat to staff... and all critical care pts) @ -Yes patient is suicidal (Gordon Arteaga) Disposition <Jose Eduardo Singleton - Last Filed: 08/13/23 03:35> Time of Disposition: 13:20 <Gordon Arteaga - Last Filed: 08/13/23 13:20> Clinical Impression: Suicidal ideation, Depression, Acute anxiety Disposition: TRANSFER TO PSYCH HOSP/UNIT Referrals: Donna Banda [Primary Care Provider] - 1-2 days
[2023-08-13] MEDS ORDERED: LORazepam 1 MG TAB PO STA ×2 (11:21→19:05)
[2023-08-13] MEDS ORDERED: LORazepam 2 MG/ML INJ IM STA (13:15)
[2023-08-14 01:33] VITALS: TEMP 98.4
[2023-08-14 07:29] LABS: Cocaine Screen,Urine Not Detected (NotDetected); Mucus,Urine Few /hpf; Phencyclidine Screen,Urine Not Detected (NotDetected); Urn Cannabinoid Scrn Not Detected (NotDetected); WBC,Urine 1 /hpf (0-5)
[2023-08-14 07:30] LABS: Amphetamine Screen,Urine Not Detected (NotDetected); Barbiturate Screen,Urine Not Detected (NotDetected); Benzodiazepines Screen,Urine Detected (NotDetected); Methadone Screen, Urine Not Detected (NotDetected); Opiate Screen,Urine Detected (NotDetected); Oxycodone Screen, Urine Not Detected (NotDetected); Tricyclic Antidepressant,Urine Not Detected (NotDetected)
[2023-08-14 07:42] LABS: Appearance,Urine Clear (Clear); Bilirubin,Urine Negative (Negative); Blood,Urine Negative (Negative); Color,Urine Yellow; Glucose,Urine (UA) Negative (Negative); Ketones,Urine 1+ (Negative); Leukocyte Esterase,Urine Negative (Negative); Nitrite,Urine Negative (Negative); PH, Urine 5.5 (5.0-8.0); Protein,Urine 1+ (Negative); RBC,Urine <1 /hpf (0-5); Urobilinogen,Urine <2.0 mg/dL (<2.0)
[2023-08-14 09:32] VITALS: BP 140/93; PULSE 78; RESP 18
== END 2023-08-14 09:10 ==
LOC: EC 00:55
DX: R45.851 Suicidal ideations (principal); F32.A Depression, unspecified; F41.9 Anxiety disorder, unspecified; E78.5 Hyperlipidemia, unspecified; I10 Essential (primary) hypertension; F17.200 Nicotine dependence, unspecified, uncomplicated; Z79.899 Other long term (current) drug therapy; Z79.82 Long term (current) use of aspirin; Z88.0 Allergy status to penicillin; Z88.8 Allergy status to other drugs, medicaments and biological substances; Z79.51 Long term (current) use of inhaled steroids
CPT/HCPCS: 82075; 81003; 80306; 87635; 99285; 96372; J2060